=== PATIENT | female | born 1970 | race Caucasian/White ===

== ENCOUNTER 2018-04-30 22:05 | Inpatient (IN) | payer OTHER ==
[~2018-04-30] VITALS: Ht 157.5 cm; Wt 124.3 kg
[~2018-04-30 22:05] MED LIST: BENADRYL25 MG PO; CHEWABLE-VITE1 EACH PO; FIORICET 50-301 EACH PO; IBUPROFEN; INDERAL10 MG PO; INDERAL60 MG PO; LISINOPRIL5 MG PO; MAXALT; NOHOMEMEDS; NORCO 5/3251 TABLET PO; TESSALON PERLE100 MG PO; TOPAMAX25 MG PO; ULTRAM50 MG PO; VERAPAMIL HCL40 MG PO; VITAMIN B-12 51 EACH SL; effexor; lisinopril
[2018-05-01 09:35] VITALS: BP 142/86
[2018-05-01 16:14] VITALS: BP 175/93
[2018-05-01] MEDS ORDERED: ACTIGALL300 MG PO (17:46)
[2018-05-01] MEDS ORDERED: PRILOSEC20 MG PO (17:46)
[2018-05-01] MEDS ORDERED: DILAUDID4 MG PO (17:46)
[2018-05-01] MEDS ORDERED: COLACE100 MG PO (17:46)
[2018-05-01] MEDS ORDERED: ZOFRAN ODT8 MG PO (17:46)
[2018-05-01 19:39] VITALS: BP 164/70
[2018-05-01 23:51] VITALS: BP 142/64
[2018-05-02 04:11] VITALS: BP 162/78
[2018-05-02 06:14] LABS: HEMATOCRIT 39.5 % (36.0-46.0); HEMOGLOBIN 13.4 G/DL (11.9-15.5); MCH 29.5 PG (29.0-34.0); MCHC 33.9 G/DL (30.0-36.0); PLATELET COUNT 288 K/uL (156-360); RBC DIS.WIDTH-CV 12.8 % (11.8-14.6); RBC DIS.WIDTH-SD 40.3 % (39-53); RED BLOOD COUNT 4.54 M/uL (3.80-5.20); WHITE BLOOD COUNT 12.6 K/uL (4.1-10.2)
[2018-05-02 06:35] LABS: CHLORIDE 102 MEQ/L (99-109); CREATININE 0.7 MG/DL (0.6-1.3); GFR ESTIMATE (CALCULATED) > 59 mL/min/; GLUCOSE 139 mg/dL (70-99); POTASSIUM 4.3 MEQ/L (3.7-5.4); SODIUM 139 MEQ/L (136-147); UREA NITROGEN (BUN) 12 mg/dL (9-23)
[2018-05-02 08:55] VITALS: BP 140/66
[2018-05-02 11:48] VITALS: BP 138/67
[2018-05-02 15:29] VITALS: BP 202/93
[2018-05-02] MEDS ORDERED: LOPRESSOR25 MG PO (16:26)
[2018-05-02 18:55] VITALS: BP 183/86
[2018-05-02 19:04] VITALS: BP 169/98
== END 2018-05-02 19:52 | disposition home or self-care (01) | DRG 621 ==
LOC: ENRESERV 22:05 → 2SOUTH 05-01 08:47 → ENRESERV 05-01 14:47 → 2EAST 05-01 15:52
PROVIDERS: Surgery
PROC: 0DB64Z3 Excision of Stomach, Percutaneous Endoscopic Approach, Vertical (ICD-10-PCS; principal; 2018-05-01)
DX: E66.01 Morbid (severe) obesity due to excess calories (principal); Z68.43 Body mass index [BMI] 50.0-59.9, adult; I10 Essential (primary) hypertension; K76.0 Fatty (change of) liver, not elsewhere classified
CPT/HCPCS: 80048; 82948; 85027; 86850; 86900; 86901; 94640; C9113; J1100; J1170; J1644; J2405; J2765; J3010; J3480; Q0175; S0074